=== PATIENT | male | born 1995 | race African-American/Black ===

== ENCOUNTER 2019-10-01 18:47 | Emergency (ER) | payer SELFPAY ==
[2019-10-01 19:17] VITALS: BP 123/86; PULSE 107
[2019-10-01] MEDS ORDERED: LORazepam 0.5 MG Tab PO ONE (20:32)
[2019-10-01] MEDS ORDERED: Ketorolac 60 MG/2 ML SDV IM ONE (20:42)
--- NOTE | 2019-10-01 20:44 | EDM.PDOCBH ---
ED HPI GENERAL MEDICAL PROBLEM - General Chief Complaint: Behavioral/Psych Stated Complaint: HIGH BP/ANXIETY/HEADACHES Time Seen by Provider: 10/01/19 20:31 Source of Information: Reports: Patient, Family, RN Notes Reviewed History Limitations: Reports: No Limitations - History of Present Illness INITIAL COMMENTS - FREE TEXT/NARRATIVE: Patient is a 24-year-old male who presents to the ED for evaluation of high blood pressure/anxiety/headaches. The patient has been having issues with anxiety for the past couple weeks, on and off. He feels as if his heart is racing, he feels clammy, has night sweats, and notes he has not been sleeping well for the past 2 weeks. He went to the clinic yesterday, for evaluation of his headaches, and thought that he had a brain tumor and had a CT done and that was negative. He was also concerned with his blood pressure, blood pressure in the ER is 123/86, and on recheck when I was evaluating him was 138/84. Patient is tachycardic. Patient notes that he has been having a 7 pound weight loss since [place] as well, he has been experiencing diarrhea too. He denies any nausea or vomiting. He does not have a primary care provider, he does not have any past medical history that he is aware of. He used to smoke marijuana when he was a teenager, but states he does not do this any longer. He denies any other drug use. - Related Data Allergies Allergy/AdvReac Type Severity Reaction Status Date / Time No Known Allergies Allergy Verified 01/07/16 20:17 Home Meds: Home Meds LORazepam [Ativan] 1 mg PO TID PRN #30 tab 10/01/19 [Rx] Past Medical History - Past Health History Medical/Surgical History: Denies Medical/Surgical History Cardiovascular History: Reports: Heart Murmur Psychiatric History: Reports: Anxiety, Depression Other Psychiatric History: is not on any medication; pt has not seen MD for these issues Social & Family History - Tobacco Use Smoking Status *Q: Never Smoker - Caffeine Use Caffeine Use: Reports: None - Recreational Drug Use Recreational Drug Type: Reports: Marijuana/Hashish Other Recreational Drug Type: last used about 8 months ago - Living Situation & Occupation Living situation: Reports: with Family ED ROS GENERAL - Review of Systems Review Of Systems: See Below Constitutional: Reports: Chills, Night Sweats, Decreased Appetite, Weight Loss. Denies: Fever Respiratory: Denies: Shortness of Breath Cardiovascular: Reports: Palpitations. Denies: Chest Pain, Lightheadedness GI/Abdominal: Reports: Diarrhea. Denies: Abdominal Pain, Nausea, Vomiting Neurological: Reports: Headache Psychiatric: Reports: Anxiety. Denies: Agitation, Depression, Hallucinations, Homicidal Ideation, Mood Lability, Suicidal Ideation ED EXAM, BEHAVIORAL HEALTH - Physical Exam Exam: See Below Exam Limited By: No Limitations General Appearance: Alert, WD/WN, No Apparent Distress, Anxious (appears mildly anxious, talks in rapid reji.) Eye Exam: Bilateral Eye: EOMI, Normal Inspection, PERRL Throat/Mouth: Normal Inspection, Normal Lips, Normal Teeth, Normal Gums, Normal Oropharynx, Normal Voice, No Airway Compromise Head: Atraumatic, Normocephalic Neck: Normal Inspection Respiratory/Chest: No Respiratory Distress, Lungs Clear, Normal Breath Sounds, No Accessory Muscle Use, Chest Non-Tender Cardiovascular: Normal Peripheral Pulses, No Edema, No Murmur, Tachycardia ( regular rate) GI/Abdominal: Normal Bowel Sounds, Soft, Non-Tender, No Distention, No Mass Extremities: Normal Inspection, Normal Capillary Refill Neurological: Alert, Normal Mood/Affect, CN II-XII Intact (grossly), Normal Cognition, Oriented x 3 Psychiatric: Alert, Normal Cognition, Oriented, Restless. No: Poor Eye Contact , Withdrawn, Flight of Ideas, Homicidal Thoughts, Phobic, Yazidi Delusions, Suicidal Plan, Suicidal Thoughts, Tangential Thoughts, Auditory Hallucinations, Grandiose Thoughts, Paranoid Thoughts Skin Exam: Warm, Dry, Intact, Normal color, No rash COURSE, BEHAVIORAL HEALTH COMP - Course Vital Signs: Last Vital Signs Temp 98.1 F 10/01/19 19:16 Pulse 107 H 10/01/19 19:16 Resp 20 10/01/19 19:16 BP 123/86 10/01/19 19:16 Pulse Ox 100 10/01/19 19:16 Orders, Labs, Meds: Laboratory Tests 10/01/19 10/01/19 10/01/19 Range/Units 20:47 20:54 20:54 WBC 7.45 (4.23-9.07) K/mm3 RBC 5.50 (4.63-6.08) M/mm3 Hgb 15.4 (13.7-17.5) gm/dl Hct 44.7 (40.1-51.0) % MCV 81.3 (79.0-92.2) fl MCH 28.0 (25.7-32.2) pg MCHC 34.5 (32.2-35.5) g/dl RDW Std Deviation 35.8 (35.1-43.9) fL Plt Count 267 (163-337) K/mm3 MPV 8.6 L (9.4-12.3) fl Neut % (Auto) 76.9 H (34.0-67.9) % Lymph % (Auto) 13.4 L (21.8-53.1) % Barron % (Auto) 9.0 (5.3-12.2) % Eos % (Auto) 0.3 L (0.8-7.0) Baso % (Auto) 0.3 (0.1-1.2) % Neut # (Auto) 5.73 H (1.78-5.38) K/mm3 Lymph # (Auto) 1.00 L (1.32-3.57) K/mm3 Barron # (Auto) 0.67 (0.30-0.82) K/mm3 Eos # (Auto) 0.02 L (0.04-0.54) K/mm3 Baso # (Auto) 0.02 (0.01-0.08) K/mm3 Sodium 134 L (136-145) mEq/L Potassium 3.4 L (3.5-5.1) mEq/L Chloride 101 (98-107) mEq/L Carbon Dioxide 23 (21-32) mEq/L Anion Gap 13.4 (5-15) BUN 10 (7-18) mg/dL Creatinine 1.0 (0.7-1.3) mg/dL Est Cr Clr Drug Dosing 96.46 mL/min Estimated GFR (MDRD) > 60 (>60) mL/min BUN/Creatinine Ratio 10.0 L (14-18) Glucose 205 H (74-106) mg/dL Calcium 9.1 (8.5-10.1) mg/dL Total Bilirubin 1.4 H (0.2-1.0) mg/dL AST 15 (15-37) U/L ALT 35 (16-63) U/L Alkaline Phosphatase 66 (46-116) U/L Total Protein 8.0 (6.4-8.2) g/dl Albumin 4.7 (3.4-5.0) g/dl Globulin 3.3 gm/dL Albumin/Globulin Ratio 1.4 (1-2) TSH 3rd Generation 0.685 (0.358-3.74) uIU/mL Urine Opiates Screen Negative (UUWOMH=477) Ur Buprenorphine Scrn Negative (CUTOFF=10) Ur Oxycodone Screen Negative (HKP6ML=866) Urine Methadone Screen Negative (BJG3AX=304) Ur Propoxyphene Screen Negative (JAXJUZ=839) Ur Barbiturates Screen Negative (AVWRDP=038) Ur Tricyclics Screen Negative (QOKUAN=690) Ur Phencyclidine Scrn Negative (CUTOFF=25) Ur Amphetamine Screen Negative (DOKWAG=722) U Methamphetamines Scrn Negative (AYWMRZ=870) U Benzodiazepines Scrn Negative (FVFTAE=611) U Cocaine Metab Screen Negative (EEVRXB=447) U Marijuana (THC) Screen Presumptive positive H (CUTOFF=50) Medications Discontinued Medications Generic Name Dose Route Start Last Admin Trade Name Freq PRN Reason Stop Dose Admin Ketorolac Tromethamine 60 mg 10/01/19 20:42 10/01/19 20:56 Toradol IM 10/01/19 20:43 60 mg ONETIME ONE Administration Lorazepam 0.5 mg 10/01/19 20:32 10/01/19 20:56 Ativan PO 10/01/19 20:33 0.5 mg ONETIME ONE Administration Discharge vs Psych Eval/Treatment:: 10/01/19 20:44 Patient presents to the ED for the evaluation of blood pressure issues anxiety and headaches. Did order CBC, CMP, TSH, 0.5 mg PO Ativan, and 60 mg IM Toradol for initial management. Patient's presentation is suspect for increased anxiety versus undiagnosed thyroid issues. 10/01/19 21:48 Labs have resulted, CBC within normal limits, CMP: Sodium mildly low at 134, potassium a little low at 3.3. Glucose elevated at 205, otherwise CMP within normal limits. The patient's TSH is within normal limits as well. Urine drug screen was positive for marijuana but no other substances. At this time we'll treat the patient for anxiety, and have him follow up with her regular care provider. Departure - Departure Time of Disposition: 21:49 Disposition: Home, Self-Care 01 Condition: Fair Clinical Impression: Anxiety - Discharge Information *PRESCRIPTION DRUG MONITORING PROGRAM REVIEWED*: No *COPY OF PRESCRIPTION DRUG MONITORING REPORT IN PATIENT [place]: No Prescriptions: LORazepam [Ativan] 1 mg PO TID PRN #30 tab PRN Reason: Anxiety Instructions: Generalized Anxiety Disorder, Adult, Living With Anxiety Forms: ED Department Discharge Additional Instructions: You were evaluated in the ER today regarding your anxiety, elevated blood pressure readings, and a headache. Your laboratory evaluation was essentially within normal limits, there was no bacterial infection, your thyroid level was within normal limits, your metabolic panel showed that you had very mildly low sodium and potassium, this can be corrected with the dietary supplementation. Foods such as bananas are high in potassium. You were given a prescription for Ativan, please take as directed. This was electronically prescribed to [facility] located near [facility], you will need to go there tomorrow to pick this medication up and take as directed You will need to find a regular doctor to prescribe these medications, you may present to [facility], for a further psychiatric evaluation their telephone number is [phone]. You may also call our clinic at [phone] and establish care with a family practice provider for anxiety. Either of these avenues would be appropriate for you at this time. Your symptoms were most likely due to anxiety, as there were no obvious abnormality is demonstrated by your laboratory evaluation. Please return to the ER at any time if your symptoms change or worsen.
== END 2019-10-01 22:09 | disposition home or self-care (01) ==
LOC: JD.ED 18:47
DX: F41.9 Anxiety disorder, unspecified (principal); F32.9 Major depressive disorder, single episode, unspecified; Z79.899 Other long term (current) drug therapy
CPT/HCPCS: 36415; 80053; 80306; 84443; 85025; 96372; 99284; A9270; J1885; 99283

== ENCOUNTER 2019-10-02 19:47 | Emergency (ER) | payer SELFPAY ==
[2019-10-02 20:05] VITALS: BP 126/86; PULSE 100
--- NOTE | 2019-10-02 20:31 | EDM.PDOC ---
ED HPI GENERAL MEDICAL PROBLEM - General Chief Complaint: ENT Problem Stated Complaint: THROAT PAIN Time Seen by Provider: 10/02/19 19:48 Source of Information: Reports: Patient History Limitations: Reports: No Limitations - History of Present Illness INITIAL COMMENTS - FREE TEXT/NARRATIVE: This is a 24-year-old male. He comes in tonight because his girlfriend told him that he smelled sec. He had been to the walk-in clinic on and they found some white spots in the back of his throat and this is been playing on his mind and so when the girlfriend thought he might be sick or smelled sick he comes to the ER thinking might have a throat infection. He denies any sore throat she denies any swelling. He's had no cough or congestion. He was here last night related to anxiety and he states he is going to be going to [facility] to help with his anxiety. He denies any fever or chills. He denies any other acute symptoms. He says he is worried he might have a throat infection. Throat Pain Score (Numeric/FACES): 4 - Related Data Allergies Allergy/AdvReac Type Severity Reaction Status Date / Time No Known Allergies Allergy Verified 01/07/16 20:17 Home Meds: Home Meds LORazepam [Ativan] 1 mg PO TID PRN #30 tab 10/01/19 [Rx] Past Medical History - Past Health History Medical/Surgical History: Denies Medical/Surgical History Cardiovascular History: Reports: Heart Murmur Psychiatric History: Reports: Anxiety, Depression Other Psychiatric History: is not on any medication; pt has not seen MD for these issues Social & Family History - Tobacco Use Smoking Status *Q: Never Smoker - Caffeine Use Caffeine Use: Reports: None - Recreational Drug Use Recreational Drug Use: Yes Recreational Drug Type: Reports: Marijuana/Hashish Other Recreational Drug Type: last used 8 months ago - Living Situation & Occupation Living situation: Reports: with Family ED ROS ENT - Review of Systems Review Of Systems: See Below Constitutional: Denies: Fever, Chills HEENT: Denies: Rhinitis, Throat Pain, Throat Swelling Respiratory: Denies: Shortness of Breath, Cough Cardiovascular: Denies: Chest Pain Endocrine: Reports: No Symptoms GI/Abdominal: Reports: Diarrhea. Denies: Abdominal Pain, Nausea, Vomiting : Reports: No Symptoms Musculoskeletal: Reports: No Symptoms Skin: Reports: No Symptoms Neurological: Reports: No Symptoms Psychiatric: Reports: Anxiety Hematologic/Lymphatic: Reports: No Symptoms Immunologic: Reports: No Symptoms ED EXAM, ENT - Physical Exam Exam: See Below Exam Limited By: No Limitations General Appearance: Alert, WD/WN, No Apparent Distress, Anxious Eye Exam: Bilateral Eye: Normal Inspection Ears: Normal External Exam, Normal Canal, Normal TMs Nose: Normal Inspection Mouth/Throat: Normal Inspection, Normal Gums, Normal Lips, Normal Oropharynx, Other (I do not see any unusual exudates or changes in the oral pharynx) Head: Normocephalic Neck: Supple, Other (Complains of soreness in the back of his skull where his neck muscles attach to the skull) Respiratory/Chest: No Respiratory Distress, Lungs Clear, Normal Breath Sounds Cardiovascular: Regular Rate, Rhythm, No Murmur GI/Abdominal: Soft Back: Normal Inspection, Full Range of Motion Extremities: Normal Inspection, Normal Range of Motion Neurological: Alert, Oriented Psychiatric: Anxious Skin: Warm, Dry Course - Vital Signs Last Recorded V/S: Last Vital Signs Temp 97.9 F 10/02/19 20:04 Pulse 100 10/02/19 20:04 Resp 20 10/02/19 20:04 BP 126/86 10/02/19 20:04 Pulse Ox 100 10/02/19 20:04 - Orders/Labs/Meds Orders: Active Orders 24 hr Category Date Time Status CULTURE STREP A CONFIRMATION [RM] Stat Lab 10/02/19 20:30 Results Rapid Strep w/culture conf [STREP SCRN A RAPID W CULT Lab 10/02/19 20:30 Results CONF] [RM] Stat - Re-Assessments/Exams Free Text/Narrative Re-Assessment/Exam: 10/02/19 22:01 I spoke to the patient regarding his test results that she does not have strep throat and more likely it's a viral infection and that it takes 7-10 days to resolve and he is not to be anxious about it. He is artery set up to see a primary care provider after the 16th of this month and he also is set up to go to [facility] for his anxiety disorder. Departure - Departure Time of Disposition: 22:02 Disposition: Home, Self-Care 01 Condition: Good Clinical Impression: Viral infection - Discharge Information *PRESCRIPTION DRUG MONITORING PROGRAM REVIEWED*: Not Applicable *COPY OF PRESCRIPTION DRUG MONITORING REPORT IN PATIENT [place]: Not Applicable Instructions: Viral Illness, Adult Referrals: PCP,None [Primary Care Provider] - Forms: ED Department Discharge Additional Instructions: Follow-up with your primary care provider for additional evaluation, consider getting some PROBIOTICS which can be found [id number] in the pharmacy and you can ask the pharmacist about them since probiotics will help with your diarrhea, follow up with [facility] so they can help you with your anxiety, return to the ER as needed - My Orders Last 24 Hours: My Active Orders 10/02/19 20:30 CULTURE STREP A CONFIRMATION [RM] Stat Rapid Strep w/culture conf [STREP SCRN A RAPID W CULT CONF] [RM] Stat - Assessment/Plan Last 24 Hours: My Active Orders 10/02/19 20:30 CULTURE STREP A CONFIRMATION [RM] Stat Rapid Strep w/culture conf [STREP SCRN A RAPID W CULT CONF] [RM] Stat
== END 2019-10-02 22:12 | disposition home or self-care (01) ==
LOC: JD.ED 19:47
DX: B34.9 Viral infection, unspecified (principal); F41.9 Anxiety disorder, unspecified; F32.9 Major depressive disorder, single episode, unspecified; Z79.899 Other long term (current) drug therapy
CPT/HCPCS: 87081; 87430; 99281; 99283